=== PATIENT | female | born 1990 | race Two or more races ===

== ENCOUNTER 2024-06-29 06:05 | Emergency (ER) | payer MEDICAID, SELFPAY ==
[2024-06-29 06:07] VITALS: BMI 23.3
[2024-06-29 06:18] VITALS: BP 109/69; PULSE 77; RESP 19; TEMP 36.8; O2SAT 98
--- NOTE | 2024-06-29 06:28 | XR_ITS ---
Examination: Complete OB ultrasound, less than 14 weeks, transabdominal Date and time of exam: June 29, 2024 0809 hours INDICATIONS: Vaginal bleeding beginning 4 days ago, positive home test June 25, 2024 Technique: Obstetrical ultrasound images less than 14 weeks performed via transabdominal imaging Findings: Uterus 10.3 x 5.6 x 8.7 cm No uterine mass or intrauterine gestation Endometrial stripe T millimeter Right ovary 2.8 cm arterial flow Left ovary 2.8 cm arterial flow IMPRESSION: No intrauterine gestation or uterine mass
[2024-06-29 07:25] LABS: Collection Type, Urine Clean Catch
[2024-06-29 07:30] LABS: Basophils % (Auto) 0 % (0-2.5); Eosinophils # (Auto) 0.2 Thou/mm3 (0.0-0.5); Eosinophils % (Auto) 2 % (0-10); Hematocrit 37.7 % (36.0-46.0); Hemoglobin 12.5 g/dL (12.0-16.0); Immature Granulocytes % (Auto) 0 % (0-0); Immature Granulocytes Auto 0.02 Thou/mm3 (0.00-0.00); Lymphocytes # (Auto) 2.3 Thou/mm3 (1.0-4.8); Lymphocytes % (Auto) 19 % (10-50); Mean Corpuscular HGB Conc 33.2 g/dl (31.0-37.0); Mean Corpuscular Hemoglobin 29.6 pg (25.0-35.0); Mean Corpuscular Volume 89 fL (80-100); Monocytes # (Auto) 0.9 Thou/mm3 (0.0-0.8); Monocytes % (Auto) 7 % (0-12); Neutrophils # (Auto) 8.3 Thou/mm3 (1.8-7.7); Neutrophils % (Auto) 71 % (37-80); Nucleated Red Blood Cell % 0 /100 WBC (0); Platelet Count 241 Thou/mm3 (140-440); RDW Standard Deviation 43.6 fL (36.4-46.3); Red Blood Count 4.22 Miln/mm3 (4.00-5.20); White Blood Count 11.7 Thou/mm3 (3.6-11.0)
[2024-06-29 07:34] LABS: Bacteria,Urine Rare; Bilirubin,Urine Negative (Negative); Blood,Urine 2+ (Negative); Clarity,Urine Clear (Clear/Hazy); Color,Urine Yellow (Lt Yel-Yel); Glucose, Urine Negative (Negative); Ketones,Urine Negative (Negative); Leukocyte Esterase,Urine Negative (Negative); Nitrite,Urine Negative (Negative); Protein,Urine Trace (Neg - Trace); RBC,Urine 328 /hpf (0-3); Specific Gravity,Urine 1.024 (1.001-1.035); Squamous Epithelial Cell,Urine < 1 /hpf (0-5); Urobilinogen,Urine Negative mg/dL (0.0-1.0); WBC,Urine 1 /hpf (0-5)
[2024-06-29 08:23] LABS: Alanine Aminotransferase 10 U/L (10-49); Albumin, Serum 4.4 gm/dL (3.5-5.0); Albumin/Globulin Ratio 1.5 (1.2-2.2); Alkaline Phosphatase 68 U/L (46-116); Anion Gap 6 (7-16); Aspartate Amino Transferase 13 U/L (0-34); BUN/Creatinine Ratio 14 Ratio (12-20); Beta HCG,Quantitative 2625 mIU/mL (<5.0); Bilirubin,Total 1.1 mg/dL (0.3-1.2); Blood Urea Nitrogen 10 mg/dL (9-23); Calcium 9.7 mg/dL (8.3-10.6); Calcium (Corrected) 9.7 mg/dL (8.5-10.1); Carbon Dioxide 25.6 mMol/L (20.0-31.0); Chloride 110 mMol/L (98-107); Creatinine (Component) 0.7 mg/dL (0.6-1.3); Estimated Creatinine Clearance 96.9 mL/min (>60); Glucose 89 mg/dL (74-106); Osmolality,Calculated 281 (275-295); Sodium 142 mMol/L (136-145); Total Protein 7.4 gm/dL (5.7-8.2); eGFR > 60 See Note
[2024-06-29 09:13] VITALS: BP 120/73; PULSE 86; RESP 16; TEMP 36.9; O2SAT 99
--- NOTE | 2024-06-29 09:59 | EDNOTE_ITS ---
<Statement entered by Katlyn Almanzar MD - 07/08/24 19:22> As co-signing physician, I was present and available for consult prn. I concur with the plan and care as documented by the midlevel provider. ED OB Contraction Preg RMI/HPI General Chief complaint: Vaginal Bleeding Stated complaint: , ABD PAIN, VAG BLEEDING Time Seen by Provider: 06/29/24 06:21 Arrival date/time: 06/29/24 06:05 34-year-old female reports she had a positive test at home presents to emergency department today complains of vaginal spotting currently patient on antibiotics for UTI Limitations: no limitations Related Data Allergies Allergy/AdvReac Type Severity Reaction Status Date / Time No Known Allergies Allergy Verified 06/29/24 06:12 Review of Systems Review of Systems Systems Reviewed: All systems reviewed, normal except as documented Constitutional Constitutional: Reports system reviewed and no additional complaints, except as documented, Denies fever(s) and Denies headache(s) Eyes Eyes: Reports system reviewed and no additional complaints, except as documented and Denies blurry vision ENT Ears, Nose, Mouth, and Throat: Reports system reviewed and no additional complaints, except as documented, Denies headache(s), Denies nasal congestion and Denies nasal discharge Cardiovascular Cardiovascular: Reports system reviewed and no additional complaints, except as documented, Denies chest pain and Denies dyspnea Respiratory Respiratory: Reports system reviewed and no additional complaints, except as documented, Denies chest congestion, Denies cough and Denies dyspnea Gastrointestinal Gastrointestinal: Reports system reviewed and no additional complaints, except as documented and Denies abdominal pain Genitourinary Genitourinary: Reports system reviewed and no additional complaints, except as documented and Reports abnormal vaginal bleeding Integumentary/Breasts Skin/Breast: Reports system reviewed and no additional complaints, except as documented and Denies rash Neurologic Neurologic: Reports system reviewed and no additional complaints, except as documented, Reports as per HPI and Denies headache(s) Past Medical History Social History SMOKING STATUS: Never smoker ED Exam General Limitations: Present no limitations General appearance: Present alert and in no apparent distress Head Head exam: Present atraumatic, normocephalic and normal inspection Eye Eye exam: Present normal appearance, PERRL and EOMI; Absent conjunctival injection ENT ENT exam: Present normal exam, normal oropharynx and mucous membranes moist Neck Neck exam: Present normal inspection, full ROM and trachea midline Chest Chest inspection: Present normal inspection and symmetric chest wall rise Respiratory Respiratory exam: Present normal lung sounds bilaterally; Absent respiratory distress Cardiovascular Cardiovascular exam: Present regular rate, normal rhythm and normal heart sounds Abdominal Exam Abdominal exam: Present soft and normal bowel sounds; Absent distention, tenderness, guarding, rebound or rigidity Extremities Exam Extremities exam: Present normal inspection and full ROM Back Exam Back exam: Present normal inspection and full ROM Neurological Exam Neurological exam: Present alert, oriented X3 and CN II-XII intact Psychiatric Psychiatric exam: Present normal affect and normal mood Skin Skin exam: Present warm, dry, intact and normal color Course Quality Measures none Orders Category Date Time Status US OB <= 14 weeks fetus Stat Exams 06/29/24 06:28 Completed ABO/RH Type Stat Lab 06/29/24 07:07 Completed Beta HCG,Quantitative Stat Lab 06/29/24 07:07 Completed CBC Stat Lab 06/29/24 07:07 Completed Comprehensive Metabolic Panel Stat Lab 06/29/24 07:07 Completed UA [Urinalysis] Stat Lab 06/29/24 06:45 Completed Urine Culture Stat Lab 06/29/24 06:45 Completed Vital Signs Vital signs: Vital Signs Temperature 98.2 F 06/29/24 06:18 Pulse Rate 77 06/29/24 06:18 Respiratory Rate 19 06/29/24 06:18 Blood Pressure 109/69 06/29/24 06:18 Pulse Oximetry (%) 98 06/29/24 06:18 Oxygen Delivery Method Room Air 06/29/24 06:18 O2 saturation 98% room air within normal limits Vaginal Bleeding MDM Narrative MDM Narrative: 34-year-old female reports she had a positive test at home presents to emergency department today complains of vaginal spotting currently patient on antibiotics for UTI On exam patient well-appearing patient is not appear ill or toxic and in no acute distress patient has soft nontender abdomen Patient is hemodynamically stable and well-appearing Lab work obtained ultrasound obtained lab work consistent with ultrasound shows no evidence of Either the patient is early and does not show a intrauterine gestation or patient is having a miscarriage this was explained to the patient Patient struck to have repeat lab work and ultrasound approximately 1 week for worsening symptoms return immediately Patient data External records reviewed:: [facility] previous records Clinical information provided by:: patient Social determinants that could affect healthcare access:: none Patient has the following chronic illnesses:: None How is presenting disease/condition affected by chronic disease/condition?: no chronic disease Evaluation data The following diagnostics were reviewed and interpreted by me:: lab results and radiology exam(s) Lab and/or radiology exams considered but not ordered:: Labs radiology obtain Interpretation Summary: Reviewed by me Medications / Prescriptions Medications or Prescriptions considered but not ordered:: Given no meds Medication administrations:: No meds given Consultations Consultation(s) initiated? (list below): No Diagnosis Vaginal Bleeding Differential Diagnosis: missed and threatened Most likely diagnosis given after review of the tests above:: Threatened Admission Indicated Admission indicated?: not indicated Admission Request Was there a request for admission?: No Disposition Plan Disposition Plan: Discharge Discharge Attestation Discharge Attestation: The patient and all family members were given an opportunity to ask questions and understood the discharge instructions. Discharge instructions specifically effects, indications for sooner follow up or return to the emergency department, and the expected course of current diagnosis. Patient condition: Stable Discharge Plan Plan Patient Disposition: HOME (Self Care) Disposition Comment: Stable Prescriptions/Referrals Referrals: Rufino (PCP)Gonzalo MD [Primary Care Provider] - 07/01/24 Problem List Clinical Impression: , threatened Patient/Caregiver Discharge Instructions Additional Instructions: Please have repeat lab work and ultrasound in 1 week for worsening symptoms or concerns return immediately Print Language: Salvadorean Stand Alone Forms: Zaina Award Info., Work/School Release, Patient Portal Info Letter PA/[employer] Supervising Physician PA/NIK Supervising Physician: Dr. ALMANZAR
== END 2024-06-29 10:01 | disposition home or self-care (01) ==
PROVIDERS: Nurse Practitioner Primary Care; Emergency Provider Emergency Medicine; PCP Family Medicine
DX: O20.0 Threatened abortion (principal)
CPT/HCPCS: 36415; 76801; 80053; 81001; 84702; 85025; 86900; 86901; 87086; 99284